=== PATIENT | female | born 1975 | race Caucasian/White ===

== ENCOUNTER → 2020-06-22 | Outpatient (CLI) | payer MEDICARE | LOC: MAMO 05-25 08:30 | DX: Z12.31 Encounter for screening mammogram for malignant neoplasm of breast (principal) | CPT/HCPCS: 77063; 77067 ==

== ENCOUNTER → 2021-04-26 | Outpatient (CLI) | payer MEDICARE | LOC: HEART 5 08:40 | DX: R07.9 Chest pain, unspecified (principal); E11.9 Type 2 diabetes mellitus without complications | CPT/HCPCS: 78452; 93306; A9502; J2785 ==

== ENCOUNTER → 2021-08-19 | Outpatient (CLI) | payer MEDICARE | LOC: MAMO 08:04 | DX: Z12.31 Encounter for screening mammogram for malignant neoplasm of breast (principal) | CPT/HCPCS: 77063; 77067 ==